=== PATIENT | female | born 1980 | race American Indian/Alaskan Native ===

== ENCOUNTER 2018-12-14 10:24 | Emergency (ER) | payer MEDICAID ==
[2018-12-14 10:31] VITALS: BP 131/81
--- NOTE | 2018-12-14 11:21 | Emergency Department Report ---
ED ENT HPI - General Chief complaint: Dental/Oral Stated complaint: TOOTH ACHE Time Seen by Provider: 12/14/18 11:13 Source: patient Mode of arrival: Ambulatory Limitations: No Limitations - History of Present Illness Initial comments: 38-year-old female presents with complaint of left sided toothache 2 days. Patient reports that she is aware that she has a bad tooth for a while. Patient reports she has not taken anything for pain but only doing warm salt rinse. Patient reports that her Medicaid is not covered by her dentist. MD complaint: tooth pain Onset/Timin -: days(s) Location: tooth # (19) Severity scale (0 -10): 10 Quality: aching Consistency: constant Improves with: none, other (has not taken anything for pain.) Worsens with: none Context- Dental: history of dental caries, poor dental care - Related Data Previous Rx's Medication Instructions Recorded Last Taken Type HYDROcodone/APAP 5-325 [[place] 1 each PO Q6H PRN #30 tablet 04/29/15 Unknown Rx 5-325 mg TAB] Ibuprofen [Motrin 600 MG tab] 600 mg PO Q6H PRN #30 tablet 04/29/15 Unknown Rx HYDROcodone/APAP 5-325 [[place] 1 each PO Q6HR PRN #30 tablet 02/25/16 Unknown Rx 5/325] Ibuprofen [Motrin 600 MG tab] 600 mg PO Q6H PRN #30 tablet 02/25/16 Unknown Rx Vit-Fe Fumar-FA [ 1 tab PO QDAY #30 tablet 02/25/16 Unknown Rx Vitamin] Clindamycin [Clindamycin CAP] 300 mg PO Q8H #30 cap 12/14/18 Unknown Rx Ibuprofen [Motrin 800 MG tab] 800 mg PO Q8HR PRN #30 tablet 12/14/18 Unknown Rx Allergies Allergy/AdvReac Type Severity Reaction Status Date / Time sulfamethoxazole Allergy Itching Verified 04/28/15 01:12 [From Bactrim] trimethoprim [From Bactrim] Allergy Itching Verified 04/28/15 01:12 ED Dental HPI - General Chief complaint: Dental/Oral Stated complaint: TOOTH ACHE Time Seen by Provider: 12/14/18 11:13 Source: patient Mode of arrival: Ambulatory Limitations: No Limitations - Related Data Previous Rx's Medication Instructions Recorded Last Taken Type HYDROcodone/APAP 5-325 [[place] 1 each PO Q6H PRN #30 tablet 04/29/15 Unknown Rx 5-325 mg TAB] Ibuprofen [Motrin 600 MG tab] 600 mg PO Q6H PRN #30 tablet 04/29/15 Unknown Rx HYDROcodone/APAP 5-325 [[place] 1 each PO Q6HR PRN #30 tablet 02/25/16 Unknown Rx 5/325] Ibuprofen [Motrin 600 MG tab] 600 mg PO Q6H PRN #30 tablet 02/25/16 Unknown Rx Vit-Fe Fumar-FA [ 1 tab PO QDAY #30 tablet 02/25/16 Unknown Rx Vitamin] Clindamycin [Clindamycin CAP] 300 mg PO Q8H #30 cap 12/14/18 Unknown Rx Ibuprofen [Motrin 800 MG tab] 800 mg PO Q8HR PRN #30 tablet 12/14/18 Unknown Rx Allergies Allergy/AdvReac Type Severity Reaction Status Date / Time sulfamethoxazole Allergy Itching Verified 04/28/15 01:12 [From Bactrim] trimethoprim [From Bactrim] Allergy Itching Verified 04/28/15 01:12 ED Review of Systems ROS: Stated complaint: TOOTH ACHE Other details as noted in HPI ED Past Medical Hx - Past Medical History Previous Medical History?: No Hx Hypertension: No Hx Congestive Heart Failure: No Hx Diabetes: No Hx Deep Vein Thrombosis: No Hx Renal Disease: No Hx Sickle Cell Disease: No Hx Seizures: No Hx Asthma: No Hx COPD: No Hx HIV: No - Surgical History Past Surgical History?: No - Social History Smoking Status: Never Smoker Substance Use Type: Alcohol - Medications Home Medications: Home Medications Medication Instructions Recorded Confirmed Last Taken Type HYDROcodone/APAP 5-325 [[place] 1 each PO Q6H PRN #30 tablet 04/29/15 02/24/16 Unknown Rx 5-325 mg TAB] Ibuprofen [Motrin 600 MG tab] 600 mg PO Q6H PRN #30 tablet 04/29/15 02/24/16 Unknown Rx HYDROcodone/APAP 5-325 [[place] 1 each PO Q6HR PRN #30 tablet 02/25/16 Unknown Rx 5/325] Ibuprofen [Motrin 600 MG tab] 600 mg PO Q6H PRN #30 tablet 02/25/16 Unknown Rx Vit-Fe Fumar-FA [ 1 tab PO QDAY #30 tablet 02/25/16 Unknown Rx Vitamin] Clindamycin [Clindamycin CAP] 300 mg PO Q8H #30 cap 12/14/18 Unknown Rx Ibuprofen [Motrin 800 MG tab] 800 mg PO Q8HR PRN #30 tablet 12/14/18 Unknown Rx ED Physical Exam - General Limitations: No Limitations General appearance: alert, in no apparent distress - Head Head exam: Present: atraumatic, normocephalic - Eye Eye exam: Present: normal appearance, EOMI - Expanded ENT Exam Expanded Teeth exam: Present: dental caries, fractured tooth # (19), dental tenderness # (19). Absent: gingival enlargement - Neurological Exam Neurological exam: Present: alert, oriented X3, normal gait - Psychiatric Psychiatric exam: Present: normal affect, normal mood - Skin Skin exam: Present: warm, dry, intact, normal color. Absent: rash ED Course Vital Signs 12/14/18 10:28 Temperature 98.5 F Pulse Rate 78 Respiratory 18 Rate Blood Pressure 131/81 O2 Sat by Pulse 98 Oximetry ED Medical Decision Making - Medical Decision Making 38-year-old female presents with complaint of left sided toothache 2 days. Patient reports that she is aware that she has a bad tooth for a while. Patient reports she has not taken anything for pain but only doing warm salt rinse. Patient reports that her Medicaid is not covered by her dentist. Ibuprofen 800 mg now. Patient was discharged home with ibuprofen 800 mg every 8 hours when necessary and clindamycin 300 mg twice a day and referred to a dentist. Critical care attestation.: If time is entered above; I have spent that time in minutes in the direct care of this critically ill patient, excluding procedure time. ED Disposition Clinical Impression: Chronic dental pain, Dental caries into pulp Disposition: DC-01 TO HOME OR SELFCARE Is pt being admited?: No Does the pt Need Aspirin: No Condition: Stable Instructions: Dental Caries (ED) Additional Instructions: Complete antibiotics as prescribed and take pain medication as needed and follow up with a dentist. Prescriptions: Clindamycin [Clindamycin CAP] 300 mg PO Q8H #30 cap Ibuprofen [Motrin 800 MG tab] 800 mg PO Q8HR PRN #30 tablet PRN Reason: Pain , Severe (7-10) Referrals: TOMÁS SOLORZANO MD [Primary Care Provider] - 3-5 Days [facility] [Outside] - 3-5 Days [facility] [Outside] - 3-5 Days [facility] [Outside] - 3-5 Days Forms: Work/School Release Form(ED)
[2018-12-14] MEDS ORDERED: IBUPROFEN PO ONE (11:22)
== END 2018-12-14 11:47 | disposition home or self-care (01) ==
LOC: ED 10:24
DX: G89.29 Other chronic pain (principal); K08.89 Other specified disorders of teeth and supporting structures; K02.9 Dental caries, unspecified; Z79.899 Other long term (current) drug therapy; Z88.1 Allergy status to other antibiotic agents; Z88.2 Allergy status to sulfonamides
CPT/HCPCS: 99282

== ENCOUNTER 2019-07-11 23:04 | Outpatient (CLI) | payer MEDICAID ==
[2019-07-11 23:17] VITALS: BP 132/65
--- NOTE | 2019-07-12 01:09 | Ultrasound Report ---
ULTRASOUND OBSTETRIC LIMITED INDICATION / CLINICAL INFORMATION: Decreased movement. TECHNIQUE: Transabdominal ultrasound imaging. COMPARISON: None available. FINDINGS: HEART RATE (beats per minute): 149 AMNIOTIC FLUID INDEX (cm) = not measured PRESENTATION: Transverse. ADDITIONAL FINDINGS: None. IMPRESSION: Viable IUP in a transverse presentation. Signer Name: Emeyl Jerry MD Signed: 07/12/2019 1:04 AM Workstation Name: [id number]
== END 2019-07-12 00:35 | disposition home or self-care (01) ==
LOC: TRG 23:04
PROVIDERS: ATTEND Obstetrics & Gynecology
DX: O36.8120 Decreased fetal movements, second trimester, not applicable or unspecified (principal); Z3A.23 23 weeks gestation of pregnancy
CPT/HCPCS: 76815

== ENCOUNTER 2019-10-15 12:30 | Outpatient (CLI) | payer MEDICAID ==
[2019-10-15] MEDS ORDERED: LACTATED RINGERS 500 ML IV ONE (14:52)
[2019-10-15 16:05] LABS: Bacteria,Urine 1+ /HPF (Negative); Bilirubin,Urine NEG (Negative); Blood,Urine NEG (Negative); Calcium Oxalate Crystals,Urine 2+; Color,Urine Amber (Yellow); Mucus,Urine 2+ /HPF; Protein,Urine <15 mg/dL mg/dL (Negative)
[2019-10-15 16:18] VITALS: BP 108/56
[2019-10-15] MEDS ORDERED: BICITRA ORAL LIQD 30ML PO ONE (16:41)
[2019-10-15] MEDS ORDERED: BICITRA ORAL LIQD 30ML ONE (16:45)
== END 2019-10-15 16:56 | disposition home or self-care (01) ==
LOC: TRG 12:30 → APU 14:18 → TRG 16:56
PROVIDERS: ATTEND Obstetrics & Gynecology
DX: O26.893 Other specified pregnancy related conditions, third trimester (principal); M54.5 Low back pain; Z3A.37 37 weeks gestation of pregnancy
CPT/HCPCS: 59025; 81001; 87086

== ENCOUNTER 2019-10-28 06:45 | Inpatient (IN) | payer MEDICAID ==
[2019-10-28] MEDS ORDERED: ONDANSETRON 4 MG/2 ML INJ IV PRN ×2 (10:03→20:53)
[2019-10-28] MEDS ORDERED: fentaNYL 100 MCG/2 ML INJ IV PRN (10:03)
[2019-10-28] MEDS ORDERED: BUTORPHANOL 2 MG/1 ML INJ IV PRN ×2 (10:03)
[2019-10-28] MEDS ORDERED: PROMETHAZINE 25 MG TAB PO PRN ×2 (10:03→20:53)
[2019-10-28] MEDS ORDERED: TERBUTALINE 1 MG/1 ML INJ SUB-Q PRN (10:03)
[2019-10-28] MEDS ORDERED: TERBUTALINE 1 MG/1 ML INJ IVP PRN (10:03)
[2019-10-28] MEDS ORDERED: NALOXONE 0.4 MG/1 ML INJ IV PRN (10:03)
[2019-10-28] MEDS ORDERED: ePHEDrine SULFATE 50 MG/1 ML INJ IV PRN ×2 (10:03→17:53)
[2019-10-28 10:40] LABS: Hematocrit 39.6 % (30.3-42.9); Mean Corpuscular HGB Conc 35 % (30-34); Mean Corpuscular Volume 90 fl (79-97); Platelet Count 210 K/mm3 (140-440)
[2019-10-28] MEDS ORDERED: LIDOCAINE (2%) 20 MG/1 ML VIAL 20 ML MDV INFILTRATI ONE (11:00)
[2019-10-28] MEDS ORDERED: OXYTOCIN DRIP 30 UNITS/500 ML BAG IV SCH (11:00)
[2019-10-28 11:08] LABS: Alanine Aminotransferase 14 units/L (7-56); BUN/Creatinine Ratio 20; Blood Urea Nitrogen 10 mg/dL (7-17); Hemolysis Index 19; Uric Acid 6.7 mg/dL (3.5-7.6)
[2019-10-28] MEDS: OXYTOCIN DRIP 30 UNITS/500 ML BAG IV SCH ×2 (11:55→15:11)
[2019-10-28] MEDS: LACTATED RINGERS 1,000 ML IV SCH ×3 (11:56→16:08)
--- NOTE | 2019-10-28 13:09 | History and Physical Report ---
History of Present Illness Date of examination: 10/28/19 Date of admission: 10/28/19 11:33 Chief complaint: Contractions History of present illness: Pt is a 39 yo at 38w6d EGA who presents reporting regular uterine contractions since 0200 today. In triage, her blood pressure was noted to be normal with occasional mild range BP. She reports positive movement and denies LOF, vaginal bleeding, VENEGAS, scotomata, or RUQ pain. She has received care with [facility], co-managed with [facility]. Her has been complicated by advanced maternal age, Trichomonas with negative test of cure, obesity, and lump on left side of neck with normal ultrasound. 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 Past History Past Medical History: no pertinent history Past Surgical History: cholecystectomy [employer] History: herpes, trichomonas Family/Genetic History: diabetes, hypertension Social history: no significant social history - Obstetrical History Expected Date of Delivery: 11/05/19 Actual Gestation: 38 Week(s) 6 Day(s) : 6 Para: 5 Hx # Term Pregnancies: 4 Number of Pregnancies: 1 (IUFD at 34 weeks) Spontaneous Abortions: 0 Induced : 0 Number of Living Children: 4 Medications and Allergies Allergies Allergy/AdvReac Type Severity Reaction Status Date / Time sulfamethoxazole Allergy Itching Verified 04/28/15 01:12 [From Bactrim] trimethoprim [From Bactrim] Allergy Itching Verified 04/28/15 01:12 Home Medications Medication Instructions Recorded Confirmed Last Taken Type Vit-Fe Fumar-FA [ 1 tab PO QDAY #30 tablet 02/25/16 10/27/19 20:00 Rx Vitamin] Active Meds: Active Medications Butorphanol Tartrate (Stadol) 1 mg IV Q2H PRN PRN Reason: Pain, Moderate(4-6) LABOR PAIN Butorphanol Tartrate (Stadol) 2 mg IV Q2H PRN PRN Reason: Pain , Severe (7-10) Ephedrine Sulfate (Ephedrine Sulfate) 10 mg IV Q2M PRN PRN Reason: Hypotension Fentanyl (Sublimaze) 100 mcg IV Q2H PRN PRN Reason: Pain,Severe (7-10) LABOR PAIN Oxytocin/Sodium Chloride (Pitocin/Ns 20 Unit/1000ml Drip) 20 units in 1,000 mls @ 125 mls/hr IV DIRECT ANNEL Oxytocin/Sodium Chloride (Pitocin/Ns 30 Unit/500ml) 30 units in 500 mls @ 1 mls/hr IV TITR ANNEL; Protocol Oxytocin/Sodium Chloride (Pitocin/Ns 30 Unit/500ml) 30 units in 500 mls @ 2 mls/hr IV TITR ANNEL; Protocol Last Titration: 10/28/19 12:50 Dose: 4 ml/hr, 4 mls/hr Documented by: Lactated Ringer's (Lactated Ringers) 1,000 mls @ 125 mls/hr IV DIRECT ANNEL Last Admin: 10/28/19 11:56 Dose: 125 mls/hr Documented by: Mineral Oil (Mineral Oil) 30 ml PO QHS PRN PRN Reason: Constipation Naloxone HCl (Naloxone) 0.1 mg IV Q2MIN PRN PRN Reason: Res Rate </= 8 or 02 SAT < 92% Ondansetron HCl (Zofran) 4 mg IV Q8H PRN PRN Reason: Nausea And Vomiting Promethazine HCl (Phenergan) 25 mg PO Q6H PRN PRN Reason: Nausea And Vomiting Terbutaline Sulfate (Brethine) 0.25 mg SUB-Q ONCE PRN PRN Reason: Hyperstimulation/Hypertonicity Stop: 10/28/19 23:59 Terbutaline Sulfate (Brethine) 0.25 mg IVP ONCE PRN PRN Reason: Hyperstimulation/Hypertonicity Stop: 10/28/19 23:59 Review of Systems All systems: negative Genitourinary: contractions, no vaginal bleeding, no vaginal discharge, no leakage of fluid, no genital sores - Vital Signs Vital signs: Vital Signs Pulse BP 93 H 135/77 10/28/19 07:13 10/28/19 07:13 Temp Pulse Resp BP Pulse Ox 98.1 F 83 18 124/78 99 10/28/19 11:33 10/28/19 12:58 10/28/19 08:06 10/28/19 12:37 10/28/19 12:58 - Physical Exam Lungs: Positive: Normal air movement Abdomen: Positive: soft Uterus: Positive: enlarged (gravid) - Obstetrical FHR: category 1 Uterine Contraction Monitor Mode: External Cervical Dilatation: 3 (per RN) Cervical Effacement Percentage: 50 station: -3 Uterine Contraction Pattern: Regular Results Result Diagrams: 10/28/19 10:36 10/28/19 10:28 Abnormal lab results 10/28/19 10/28/19 Range/Units 10:28 10:36 MCHC 35 H (30-34) % RDW 16.0 H (13.2-15.2) % Sodium 136 L (137-145) mmol/L Creatinine 0.5 L (0.7-1.2) mg/dL Alkaline Phosphatase 154 H (35-129) units/L Lactate Dehydrogenase 237 H (91-180) units/L All other labs normal. 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
[2019-10-28] MEDS ORDERED: DEXMEDETOMIDINE 200 MCG/2 ML VIAL IV ONE (17:18)
[2019-10-28] MEDS ORDERED: NALOXONE 2 MG/2 ML INJ IV PRN (17:53)
--- NOTE | 2019-10-28 17:53 | Anesthesia Consultation ---
Anesthesia Consult and Med Hx Date of service: 10/28/19 - Airway Anesthetic Teeth Evaluation: Good ROM Head & Neck: Adequate Mental/Hyoid Distance: Adequate Mallampati Class: Class III Intubation Access Assessment: Probably Good - Pulmonary Exam CTA: Yes - Cardiac Exam Cardiac Exam: RRR - Pre-Operative Health Status ASA Pre-Surgery Classification: ASA3 Proposed Anesthetic Plan: Epidural - Pulmonary Hx Smoking: No Hx Asthma: No Hx Respiratory Symptoms: No SOB: No COPD: No Home Oxygen Therapy: No Hx Pneumonia: No Hx Sleep Apnea: No - Cardiovascular System Hx Hypertension: No Hx Coronary Artery Disease: No Hx Heart Attack/AMI: No Hx Angina: No Hx Percutaneous Transluminal Coronary Angioplasty (PTCA): No Hx Cardia Arrhythmia: No Hx Pacemaker: No Hx Internal Defibrillator: No Hx Valvular Heart Disease: No Hx Heart Murmur: No Hx Peripheral Vascular Disease: No - Central Nervous System Hx Neuromuscular Disorder: No Hx Seizures: No CVA: No Hx Back Pain: Yes Hx Psychiatric Problems: No - Gastrointestinal Hx Ulcer: No Hx Gastroesophageal Reflux Disease: Yes - Endocrine Hx Renal Disease: No Hx End Stage Renal Disease: No Hx Cirrhosis: No Hx Liver Disease: No Hx Insulin Dependent Diabetes: No Hx Non-Insulin Dependent Diabetes: No Hx Thyroid Disease: No Hx Hypothyroidism: No Hx Hyperthyroidism: No - Hematic Hx Anemia: No Hx Sickle Cell Disease: No - Other Systems Hx Alcohol Use: No Hx Cancer: No Hx Obesity: Yes (morbid)
--- NOTE | 2019-10-28 18:02 | Progress Note ---
Labor Epidural - Labor Epidural Start Time: 17:15 Stop Time: 17:31 Performed by:: JL AUGUSTIN Procedure: Continues Labor Epidural Patient is requesting a laboring epidural for laboring pain. Patient IDed, H&P reviewed, all questions and concerns were answered, and consent was signed. Timeout was performed at bedside. Patient in sitting position. Sterile prep and drape was performed. [3] ml of 1% lidocaine skin wheal at L[3]- L [4]. 18- gauge Touhy epidural needle was advanced to loss of resistance with air technique 7cm. Negative CSF negative blood. Epidural catheter advanced to [12 ] centimeters. [NEGATIVE] Aspiration [NEGATIVE] test dose. Sterile dressing applied. Patient tolerated procedure well.
[2019-10-28] MEDS: fentaNYL-BUPIV 2 MCG/ML-0.125% 200 MCG/100 ML BAG EPIDURAL SCH ×2 (18:35→18:37)
[2019-10-28] MEDS ORDERED: MINERAL OIL 30 ML ORAL LIQD ONE (19:50)
[2019-10-28] MEDS: OXYTOCIN 20 UNIT/1000ML DRIP 20 UNITS/1,000 ML BAG IV SCH ×2 (20:35→23:31)
--- NOTE | 2019-10-28 20:42 | Post Anesthesia Evaluation ---
- Post Anesthesia Evaluation Patient Participated: Yes Airway Patent: Yes Stable Respiratory Function: Yes Nausea/Vomiting: No Temp > 96.8F: Yes Pain Manageable: Yes Adequeate Hydration: Yes Anesthesia Complications: No Block Receding Appropriately: Yes Patient on Ventilator: No
[2019-10-28] MEDS ORDERED: miSOPROStol 200 MCG TAB ONE (20:43)
[2019-10-28] MEDS ORDERED: diphenhydrAMINE 25 MG CAP PO PRN (20:53)
[2019-10-28] MEDS ORDERED: WITCH HAZEL/ GLYCERIN PAD TP PRN (20:53)
[2019-10-28] MEDS ORDERED: MAGNESIUM HYDROXIDE (MOM) ORAL LIQD UDC PO PRN (20:53)
[2019-10-28] MEDS ORDERED: LANOLIN/ZINC/DIMETHICONE (LANSINOH) 7 GM TP PRN (20:53)
[2019-10-28] MEDS ORDERED: PROMETHAZINE 25 MG RECT SUPP PR PRN (20:53)
[2019-10-28] MEDS ORDERED: ACETAMINOPHEN 325 MG TAB PO PRN (20:53)
--- NOTE | 2019-10-28 21:00 | Procedure Note ---
OB Delivery Note - Delivery Date of Delivery: 10/28/19 Surgeon: JUAREZ LO ([facility]) Estimated blood loss: 200cc - Vaginal Delivery presentation: vertex Delivery position: OA Delivery induction: none Delivery augmentation: pitocin Delivery monitor: external FHT, external uterine Route of delivery: Delivery placenta: spontaneous Delivery cord: 3 umbilical vessels, other (body cord) Episiotomy: none Delivery laceration: none Anesthesia: epidural Delivery comments: Pt noted to be c/c/o and commenced pushing. Excellent maternal effort progressed to of vigorous male infant at 2030. Head delivered OA, restituted LOT, shoulders followed easily. Infant to maternal abdomen. Apgars 8/9. Cord clamped and cut 8 minutes after . Placenta delivered spontaneously and intact at 2039. Fundus firm, Pitocin infusing. No la cerations noted. EBL 200cc. Prophylactic Cytotec 800mcg administered DE. Weight 6lb 0.5oz. Mother and infant bonding, plan to breast feed. - Infant A at 1 minute: 8 at 5 minutes: 9 Gender: Male
[2019-10-28] MEDS ORDERED: miSOPROStol 200 MCG TAB PR ONE (21:18)
[2019-10-28] MEDS ORDERED: MINERAL OIL 30 ML ORAL LIQD PO PRN (22:00)
[2019-10-28] MEDS: IBUPROFEN 600 MG TAB PO SCH (23:29)
[2019-10-29] MEDS: IBUPROFEN 600 MG TAB PO SCH ×3 (04:51→20:06)
[2019-10-29 08:13] LABS: Hematocrit 36.2 % (30.3-42.9); Hemoglobin 12.4 gm/dl (10.1-14.3)
--- NOTE | 2019-10-29 09:01 | Progress Note ---
Assessment and Plan - Patient Problems (1) Vaginal delivery Current Visit: Yes Status: Acute Plan to address problem: Patient doing well discharge home tomorrow Subjective - Subjective Date of service: 10/29/19 Interval history: Patient without any significant complaints. She reports that her lochia is decreasing her pain is well controlled. Patient reports: appetite normal, voiding normally, pain well controlled : doing well Objective - Vital Signs Latest vital signs: Vital Signs Temp Pulse Resp BP BP Pulse Ox 10/29/19 08:25 98 F 81 18 123/81 95 10/29/19 04:00 98.8 F 74 18 118/74 10/29/19 00:00 98.6 F 69 16 118/69 10/28/19 22:45 97.7 F 82 16 125/52 10/28/19 22:01 90 112/64 10/28/19 21:40 85 119/74 10/28/19 21:20 86 116/73 10/28/19 21:00 90 124/73 10/28/19 20:45 97.4 F L 16 10/28/19 20:40 85 113/60 10/28/19 20:27 121 H 100 10/28/19 20:22 103 H 105/55 100 10/28/19 20:17 95 H 100 10/28/19 20:12 84 100 10/28/19 20:07 111 H 100 10/28/19 20:02 109 H 100 10/28/19 20:00 96 H 103/61 10/28/19 19:57 90 100 10/28/19 19:52 112 H 100 10/28/19 19:47 94 H 100 10/28/19 19:42 92 H 100 10/28/19 19:40 96 H 95/54 10/28/19 19:37 79 100 10/28/19 19:32 90 100 10/28/19 19:27 84 100 10/28/19 19:22 74 100 10/28/19 19:20 89 102/58 10/28/19 19:17 91 H 100 10/28/19 19:12 92 H 100 10/28/19 19:10 97.7 F 16 10/28/19 19:07 87 100 10/28/19 19:06 97 H 104/58 10/28/19 19:04 103 H 94 10/28/19 19:02 91 H 100 20 18:57 93 H 100 20 18:52 98 H 100 20 18:47 98 H 100 20 18:42 81 100 20 18:41 90 111/71 20 18:37 84 100 20 18:32 90 100 20 18:27 78 100 20 18:22 85 100 20 18:20 88 116/68 20 18:17 87 100 20 18:12 96 H 100 10/28/19 18:07 89 98 10/28/19 18:02 97 H 98 10/28/19 18:00 99 H 105/55 10/28/19 17:57 109 H 98 10/28/19 17:52 102 H 100 10/28/19 17:47 94 H 99 10/28/19 17:42 111 H 99 10/28/19 17:39 93 H 131/77 10/28/19 17:38 93 H 127/71 10/28/19 17:37 91 H 100 10/28/19 17:36 103 H 136/64 10/28/19 17:33 83 135/73 10/28/19 17:32 88 133/80 99 10/28/19 17:27 104 H 99 10/28/19 17:26 93 H 90 10/28/19 17:22 92 H 99 10/28/19 17:17 99 H 97 10/28/19 17:12 80 99 10/28/19 17:08 86 119/64 10/28/19 17:07 87 98 10/28/19 17:02 88 99 10/28/19 16:57 78 100 20 16:52 92 H 99 20 16:47 80 99 20 16:42 78 99 20 16:37 79 98 20 16:36 85 116/57 20 16:32 85 100 20 16:27 93 H 95 10/28/19 16:22 90 99 10/28/19 16:17 92 H 98 10/28/19 16:12 85 100 10/28/19 16:07 76 100 10/28/19 16:02 73 100 10/28/19 15:57 80 98 10/28/19 15:50 63 54 L 10/28/19 15:48 81 100 10/28/19 15:43 75 100 10/28/19 15:38 81 100 10/28/19 15:37 83 127/61 10/28/19 15:33 90 100 10/28/19 15:32 62 88 10/28/19 15:28 77 100 10/28/19 15:23 90 100 10/28/19 15:20 94 10/28/19 15:18 81 100 10/28/19 15:13 86 100 10/28/19 15:08 81 100 10/28/19 15:07 89 120/64 10/28/19 15:03 89 100 10/28/19 14:58 83 100 10/28/19 14:53 79 99 10/28/19 14:48 81 98 10/28/19 14:43 86 99 10/28/19 14:38 88 99 10/28/19 14:36 93 H 109/60 10/28/19 14:33 89 98 10/28/19 14:28 99 H 98 10/28/19 14:23 85 98 10/28/19 14:18 91 H 97 10/28/19 14:13 82 98 10/28/19 14:08 83 97 10/28/19 14:06 95 H 112/65 10/28/19 14:03 83 98 10/28/19 13:58 92 H 97 10/28/19 13:53 82 98 10/28/19 13:48 81 99 10/28/19 13:47 98.1 F 10/28/19 13:43 84 99 10/28/19 13:38 86 100 10/28/19 13:36 92 H 130/63 10/28/19 13:33 89 98 10/28/19 13:28 90 97 10/28/19 13:23 88 99 10/28/19 13:18 91 H 95 10/28/19 13:13 84 96 10/28/19 13:08 86 97 10/28/19 13:06 86 116/74 10/28/19 13:03 90 95 10/28/19 12:58 83 99 10/28/19 12:53 91 H 95 10/28/19 12:48 89 96 10/28/19 12:44 85 93 10/28/19 12:43 96 H 95 10/28/19 12:38 107 H 96 10/28/19 12:37 85 124/78 90 10/28/19 12:33 87 97 10/28/19 12:28 88 96 10/28/19 12:23 91 H 98 10/28/19 12:18 91 H 96 10/28/19 12:13 101 H 97 10/28/19 12:08 87 98 10/28/19 12:07 100 H 113/67 10/28/19 11:35 101 H 110/70 10/28/19 11:33 98.1 F 10/28/19 10:42 83 96 10/28/19 10:37 83 98 10/28/19 10:32 87 99 10/28/19 10:10 101 H 92 10/28/19 10:05 94 H 97 10/28/19 10:03 91 H 94 10/28/19 10:00 87 100 10/28/19 09:55 93 H 106/56 98 Intake and Output 10/28/19 10/29/19 10/29/19 22:59 06:59 14:59 Intake Total 2583.800 366.667 240 Output Total 950 Balance 2583.800 -583.333 240 Intake: IV 2583.800 366.667 Lactated Ringers 1,000 ml 2525.000 @ 125 mls/hr IV DIRECT ANNEL Rx#:[id number] PITOCin/NS 20 UNIT/1000ML 366.667 DRIP 20 units In 1,000 ml @ 125 mls/hr IV DIRECT ANNEL Rx#:[id number] PITOCin/NS 30 UNIT/500ML 58.800 30 units In 500 ml @ 2 mls/hr IV TITR ANNEL Rx#: [id number] Oral 240 Output: Urine 950 Void 950 Other: Total, Intake Amount 240 Total, Output Amount 450 # Voids Void 1 1 Estimated Blood Loss 200 - Exam Uterus: Present: normal, firm - Labs Labs: Abnormal lab results 10/28/19 10/28/19 Range/Units 10:28 10:36 MCHC 35 H (30-34) % RDW 16.0 H (13.2-15.2) % Sodium 136 L (137-145) mmol/L Creatinine 0.5 L (0.7-1.2) mg/dL Alkaline Phosphatase 154 H (35-129) units/L Lactate Dehydrogenase 237 H (91-180) units/L
--- NOTE | 2019-10-29 09:04 | Discharge Summary ---
Providers - Providers Date of Admission: 10/28/19 11:33 Date of discharge: 10/30/19 Attending physician: THEO MOSCOSO Primary care physician: THEO MOSCOSO Hospitalization Reason for admission: active labor Delivery: Discharge diagnosis: IUP at term delivered Hospital course: Patient was admitted in active labor and had a successful vaginal delivery. Her course was uneventful. Condition at discharge: Good Disposition: DC- TO HOME OR SELFCARE - Discharge Diagnoses (1) Vaginal delivery Status: Acute Plan - Discharge Medications Prescriptions: Ibuprofen [Motrin] 600 mg PO Q6H PRN #60 tablet PRN Reason: Pain Ibuprofen [Motrin] 800 mg PO Q8HR PRN #60 tablet PRN Reason: Pain , Severe (7-10) HYDROcodone/APAP 5-325 [[place] 5/325] 1 each PO Q6HR PRN #15 tablet PRN Reason: Pain - Provider Discharge Summary Activity: no sex for 6 weeks, no heavy lifting 4 weeks, no strenuous exercise Diet: routine Instructions: routine Additional instructions: [] Smoking cessation referral if applicable(refer to patient education folder for contact #) [] Refer to [facility] Booklet Call your doctor immediately for: * Fever > 100.5 * Heavy vaginal bleeding ( >1 pad per hour) * Severe persistent headache * Shortness of breath * Reddened, hot, painful area to leg or breast * visit in 4 weeks - Follow up plan
[2019-10-30] MEDS: IBUPROFEN 600 MG TAB PO SCH (07:16)
[2019-10-30 12:57] VITALS: BP 131/71
== END 2019-10-30 12:40 | disposition home or self-care (01) | DRG 774 ==
LOC: TRG 06:45 → APU 06:51 → TRG 11:32 → LD 11:33 → OB 23:20
PROVIDERS: ADMIT Obstetrics & Gynecology; ATTEND Obstetrics & Gynecology
PROC: 10E0XZZ Delivery of Products of Conception, External Approach (ICD-10-PCS; principal; 2019-10-28)
PROC: 3E0R3BZ Introduction of Anesthetic Agent into Spinal Canal, Percutaneous Approach (ICD-10-PCS; 2019-10-28)
PROC: 00HU33Z Insertion of Infusion Device into Spinal Canal, Percutaneous Approach (ICD-10-PCS; 2019-10-28)
PROC: 10907ZC Drainage of Amniotic Fluid, Therapeutic from Products of Conception, Via Natural or Artificial Opening (ICD-10-PCS; 2019-10-28)
DX: O99.62 Diseases of the digestive system complicating childbirth (principal); O98.52 Other viral diseases complicating childbirth; O69.89X0 Labor and delivery complicated by other cord complications, not applicable or unspecified; K21.9 Gastro-esophageal reflux disease without esophagitis; O99.214 Obesity complicating childbirth; E66.01 Morbid (severe) obesity due to excess calories; B00.9 Herpesviral infection, unspecified; Z3A.38 38 weeks gestation of pregnancy; Z37.0 Single live birth; Z90.49 Acquired absence of other specified parts of digestive tract; Z82.49 Family history of ischemic heart disease and other diseases of the circulatory system; Z83.3 Family history of diabetes mellitus; Z88.2 Allergy status to sulfonamides
CPT/HCPCS: 36415; 80053; 83615; 84550; 85014; 85018; 85027; 86850; 86900; 86901; G0378; J2590; J3490; J7120

== ENCOUNTER 2021-02-20 14:37 | Inpatient (IN) | payer MEDICAID ==
--- NOTE | 2021-02-20 16:47 | History and Physical Report ---
History of Present Illness Date of examination: 02/20/21 Date of admission: 02/20/21 14:37 Chief complaint: Induction of labor History of present illness: 40-year-old -1-0-5 at 37 and 2 weeks who presents for induction of labor secondary to oligohydramnios and a history of intrauterine . The patient initiated her care in the first trimester of her . Her course is complicated by advanced maternal age, grand multiparity, history of intrauterine demise, morbid obesity, and currently oligohydramnios. The patient is GBS negative Past History Past Medical History: no pertinent history Past Surgical History: cholecystectomy Social history: - Obstetrical History Expected Date of Delivery: 03/11/21 Actual Gestation: 37 Week(s) 2 Day(s) : 7 Para: 5 Hx # Term Pregnancies: 5 Number of Pregnancies: 1 Spontaneous Abortions: 0 Induced : 0 Number of Living Children: 5 Medications and Allergies Allergies Allergy/AdvReac Type Severity Reaction Status Date / Time sulfamethoxazole Allergy Itching Verified 04/28/15 01:12 [From Bactrim] trimethoprim [From Bactrim] Allergy Itching Verified 04/28/15 01:12 Home Medications Medication Instructions Recorded Confirmed Last Taken Type Vit-Fe Fumar-FA [ 1 tab PO QDAY #30 tablet 02/25/16 10/27/19 20:00 Rx Vitamin] Ibuprofen [Motrin] 600 mg PO Q6H PRN #60 tablet 10/28/19 Unknown Rx HYDROcodone/APAP 5-325 [[place] 1 each PO Q6HR PRN #15 tablet 10/29/19 Unknown Rx 5/325] Ibuprofen [Motrin] 800 mg PO Q8HR PRN #60 tablet 10/29/19 Unknown Rx Review of Systems All systems: negative - Vital Signs Vital signs: Vital Signs Pulse Ox 80 L 02/20/21 15:46 Temp Pulse Resp BP Pulse Ox 73 97 02/20/21 16:36 02/20/21 16:36 - Physical Exam Breasts: Positive: deferred Cardiovascular: Regular rate Lungs: Positive: Clear to auscultation Abdomen: Positive: normal appearance Results All other labs normal. Assessment and Plan - Patient Problems (1) Oligohydramnios Current Visit: Yes Status: Acute Plan to address problem: Admit for induction of labor (2) Morbid obesity Current Visit: No Status: Acute
[2021-02-20] MEDS ORDERED: CARBOPROST TROMETHAMINE 250 MCG/1 ML INJ IM PRN (17:55)
[2021-02-20] MEDS ORDERED: LOPERAMIDE 2 MG CAP PO PRN (17:55)
[2021-02-20] MEDS ORDERED: fentaNYL 100 MCG/2 ML INJ IV PRN (17:55)
[2021-02-20] MEDS ORDERED: miSOPROStol 200 MCG TAB PR PRN (17:55)
[2021-02-20] MEDS ORDERED: OXYTOCIN 10 UNIT/1 ML INJ IM PRN (17:55)
[2021-02-20] MEDS ORDERED: BUTORPHANOL 2 MG/1 ML INJ IV PRN (17:55)
[2021-02-20] MEDS ORDERED: METHYLERGONOVINE MALEATE 0.2 MG/ML VIAL IM PRN (17:55)
[2021-02-20] MEDS ORDERED: LIDOCAINE (2%) 20 MG/1 ML VIAL 20 ML MDV INFILTRATI ONE (17:55)
[2021-02-20] MEDS ORDERED: ACETAMINOPHEN 325 MG TAB PO PRN (17:55)
[2021-02-20] MEDS ORDERED: TERBUTALINE 1 MG/1 ML INJ SUB-Q PRN (17:55)
[2021-02-20] MEDS ORDERED: MINERAL OIL 30 ML ORAL LIQD PO PRN (17:55)
[2021-02-20] MEDS ORDERED: OXYTOCIN DRIP 30 UNITS/500 ML BAG IV SCH ×2 (18:00)
[2021-02-20] MEDS: LACTATED RINGERS 1,000 ML IV SCH (19:30)
[2021-02-20 19:31] LABS: Hematocrit 37.4 % (30.3-42.9); Hemoglobin 12.8 gm/dl (10.1-14.3); Mean Corpuscular HGB Conc 34 % (30-34); Mean Corpuscular Volume 87 fl (79-97); Platelet Count 198 K/mm3 (140-440); Red Blood Count 4.32 M/mm3 (3.65-5.03)
[2021-02-21] MEDS ORDERED: ePHEDrine SULFATE 50 MG/1 ML INJ IV PRN (01:01)
[2021-02-21] MEDS ORDERED: NALOXONE 2 MG/2 ML INJ IV PRN (01:01)
--- NOTE | 2021-02-21 01:01 | Anesthesia Consultation ---
Anesthesia Consult and Med Hx Date of service: 02/21/21 - Airway Anesthetic Teeth Evaluation: Good ROM Head & Neck: Adequate Mental/Hyoid Distance: Adequate Mallampati Class: Class II Intubation Access Assessment: Probably Good - Pulmonary Exam CTA: Yes - Cardiac Exam Cardiac Exam: RRR - Pre-Operative Health Status ASA Pre-Surgery Classification: ASA3 Proposed Anesthetic Plan: Epidural - Pulmonary Hx Smoking: No Hx Asthma: No Hx Respiratory Symptoms: No SOB: No COPD: No Hx Pneumonia: No Hx Sleep Apnea: No - Cardiovascular System Hx Hypertension: No Hx Coronary Artery Disease: No Hx Heart Attack/AMI: No Hx Angina: No Hx Percutaneous Transluminal Coronary Angioplasty (PTCA): No Hx Cardia Arrhythmia: No Hx Pacemaker: No Hx Internal Defibrillator: No Hx Valvular Heart Disease: No Hx Heart Murmur: No Hx Peripheral Vascular Disease: No - Central Nervous System Hx Neuromuscular Disorder: No Hx Seizures: No CVA: No Hx Back Pain: Yes Hx Psychiatric Problems: No - Gastrointestinal Hx Ulcer: No Hx Gastroesophageal Reflux Disease: Yes - Endocrine Hx Renal Disease: No Hx End Stage Renal Disease: No Hx Cirrhosis: No Hx Liver Disease: No Hx Insulin Dependent Diabetes: No Hx Non-Insulin Dependent Diabetes: Yes Hx Thyroid Disease: No Hx Hypothyroidism: No Hx Hyperthyroidism: No - Hematic Hx Anemia: No Hx Sickle Cell Disease: No - Other Systems Hx Alcohol Use: No Hx Cancer: No Hx Obesity: Yes
--- NOTE | 2021-02-21 01:21 | Progress Note ---
Labor Epidural - Labor Epidural Start Time: 01:12 Stop Time: :17 Performed by:: ARNIE NAM Procedure: Patient is requesting epidural for labor pain. H&P, and labs reviewed. Procedure explained, questions answered, consent obtained. Patient in sitting position with blood pressure cuff and pulse ox on and working. Timeout performed immediately before start of procedure. Sterile chlorahexadine 0.5% prep/drape. 3 mL 1% lidocaine skin wheal at L[3]-L[4]. 17-gauge tuohy epidural needle advanced to [id number] with saline at 9 cm. 25-gauge spinal needle advanced until clear, free-flowing CSF. Intrathecal dexmedetomidine [5] mcg administered and needle removed. Epidural catheter advanced to 15 cm, negative aspiration for blood and csf, negative test dose 3 ml 1.5% lidocaine with epinephrine. Sterile sponge and tegaderm applied, followed by tape reinforcement. Patient tolerated procedure well.
[2021-02-21] MEDS: ePHEDrine SULFATE 50 MG/1 ML INJ IV PRN ×3 (01:32→01:54)
[2021-02-21] MEDS ORDERED: fentaNYL-BUPIV 2 MCG/ML-0.125% 200 MCG/100 ML BAG EPIDURAL SCH (02:00)
[2021-02-21] MEDS ORDERED: ePHEDrine SULFATE 50 MG/1 ML INJ IM ONE (02:52)
[2021-02-21] MEDS: LACTATED RINGERS 1,000 ML IV SCH ×2 (03:53→09:50)
--- NOTE | 2021-02-21 07:36 | Progress Note ---
Assessment and Plan - Patient Problems (1) Oligohydramnios Current Visit: Yes Status: Acute Qualifiers: Fetus number: single or unspecified fetus Trimester: third trimester Qualified Code(s): O41.03X0 - Oligohydramnios, third trimester, not applicable or unspecified Plan to address problem: Resume Pitocin titration starting at 2 mu/min Continue epidural at half if comfortable Anticipate (2) Morbid obesity Current Visit: No Status: Acute Subjective - Subjective Date of service: 02/21/21 Principal diagnosis: IOL secondary to Oligohydramnios Interval history: 40-year-old -1-0-5 at 37 and 2 weeks who presents for induction of labor secondary to oligohydramnios and a history of intrauterine . The patient initiated her care in the first trimester of her . Her course is complicated by advanced maternal age, grand multiparity, history of intrauterine demise, morbid obesity, and currently oligohydramnios. The patient is GBS negative Patient reports: loss of fluid (clear fluids), movement normal, no new complaints, no vaginal bleeding, no contractions Objective - Vital Signs Vital Signs: Vital Signs - 12hr 02/20/21 02/20/21 02/20/21 19:39 19:42 19:44 Temperature Pulse Rate 78 70 72 Respiratory Rate Blood Pressure Blood Pressure [Right] O2 Sat by Pulse 98 90 97 Oximetry 02/20/21 02/20/21 02/20/21 19:49 19:54 19:59 Temperature Pulse Rate 73 75 63 Respiratory Rate Blood Pressure Blood Pressure [Right] O2 Sat by Pulse 96 97 98 Oximetry 02/20/21 02/20/21 02/20/21 20:03 20:04 20:09 Temperature Pulse Rate 74 71 71 Respiratory Rate Blood Pressure Blood Pressure [Right] O2 Sat by Pulse 94 97 97 Oximetry 02/20/21 02/20/21 02/20/21 20:14 20:16 20:19 Temperature Pulse Rate 71 74 84 Respiratory Rate Blood Pressure Blood Pressure [Right] O2 Sat by Pulse 96 92 98 Oximetry 02/20/21 02/20/21 02/20/21 20:24 20:26 20:29 Temperature Pulse Rate 70 72 72 Respiratory Rate Blood Pressure Blood Pressure [Right] O2 Sat by Pulse 95 93 96 Oximetry 02/20/21 02/20/21 02/20/21 20:32 20:34 20:37 Temperature Pulse Rate 71 72 71 Respiratory Rate Blood Pressure Blood Pressure [Right] O2 Sat by Pulse 93 96 94 Oximetry 02/20/21 02/20/21 02/20/21 20:39 20:42 20:44 Temperature Pulse Rate 72 76 70 Respiratory Rate Blood Pressure Blood Pressure [Right] O2 Sat by Pulse 94 94 95 Oximetry 02/20/21 02/20/21 02/20/21 20:49 20:52 20:54 Temperature Pulse Rate 73 72 73 Respiratory Rate Blood Pressure Blood Pressure [Right] O2 Sat by Pulse 94 93 96 Oximetry 02/20/21 02/20/21 02/20/21 20:58 20:59 21:00 Temperature 98.7 F Pulse Rate 68 74 Respiratory Rate Blood Pressure Blood Pressure [Right] O2 Sat by Pulse 93 96 Oximetry 02/20/21 02/20/21 02/20/21 21:04 21:09 21:10 Temperature Pulse Rate 76 72 74 Respiratory Rate Blood Pressure Blood Pressure [Right] O2 Sat by Pulse 94 95 94 Oximetry 02/20/21 02/20/21 02/20/21 21:14 21:15 21:19 Temperature Pulse Rate 76 75 71 Respiratory Rate Blood Pressure Blood Pressure [Right] O2 Sat by Pulse 96 94 96 Oximetry 02/20/21 02/20/21 02/20/21 21:20 21:24 21:26 Temperature Pulse Rate 72 70 76 Respiratory Rate Blood Pressure Blood Pressure [Right] O2 Sat by Pulse 94 93 94 Oximetry 02/20/21 02/20/21 02/20/21 21:29 21:34 21:39 Temperature Pulse Rate 71 67 71 Respiratory Rate Blood Pressure Blood Pressure [Right] O2 Sat by Pulse 95 95 95 Oximetry 02/20/21 02/20/21 02/20/21 21:44 21:49 21:52 Temperature Pulse Rate 71 84 73 Respiratory Rate Blood Pressure Blood Pressure [Right] O2 Sat by Pulse 96 97 94 Oximetry 02/20/21 02/20/21 02/20/21 21:54 22:23 22:25 Temperature Pulse Rate 73 76 67 Respiratory Rate Blood Pressure 119/70 Blood Pressure [Right] O2 Sat by Pulse 96 97 Oximetry 02/20/21 02/20/21 02/20/21 22:28 22:33 22:38 Temperature Pulse Rate 76 83 74 Respiratory Rate Blood Pressure Blood Pressure [Right] O2 Sat by Pulse 97 97 96 Oximetry 02/20/21 02/20/21 02/20/21 22:41 22:43 22:48 Temperature Pulse Rate 73 75 65 Respiratory Rate Blood Pressure Blood Pressure [Right] O2 Sat by Pulse 94 97 95 Oximetry 02/20/21 02/20/21 02/20/21 22:53 22:56 22:58 Temperature Pulse Rate 75 79 77 Respiratory Rate Blood Pressure Blood Pressure [Right] O2 Sat by Pulse 98 94 98 Oximetry 02/20/21 02/20/21 02/20/21 23:03 23:08 23:13 Temperature Pulse Rate 68 63 64 Respiratory Rate Blood Pressure Blood Pressure [Right] O2 Sat by Pulse 97 96 97 Oximetry 02/20/21 02/20/21 02/20/21 23:14 23:18 23:22 Temperature Pulse Rate 62 69 61 Respiratory Rate Blood Pressure Blood Pressure [Right] O2 Sat by Pulse 94 97 94 Oximetry 02/20/21 02/20/21 02/20/21 23:23 23:28 23:33 Temperature Pulse Rate 71 64 72 Respiratory Rate Blood Pressure Blood Pressure [Right] O2 Sat by Pulse 96 96 95 Oximetry 02/20/21 02/20/21 02/20/21 23:38 23:42 23:43 Temperature Pulse Rate 67 74 77 Respiratory Rate Blood Pressure Blood Pressure [Right] O2 Sat by Pulse 98 94 95 Oximetry 02/20/21 02/20/21 02/20/21 23:48 23:52 23:53 Temperature Pulse Rate 64 68 70 Respiratory Rate Blood Pressure Blood Pressure [Right] O2 Sat by Pulse 99 83 L 94 Oximetry 02/20/21 02/21/21 02/21/21 23:58 00:01 00:03 Temperature Pulse Rate 62 69 79 Respiratory Rate Blood Pressure Blood Pressure [Right] O2 Sat by Pulse 98 94 94 Oximetry 02/21/21 02/21/21 02/21/21 00:08 00:13 00:18 Temperature Pulse Rate 61 74 63 Respiratory Rate Blood Pressure Blood Pressure [Right] O2 Sat by Pulse 76 L 99 98 Oximetry 02/21/21 02/21/21 02/21/21 00:23 00:28 00:33 Temperature Pulse Rate 69 63 62 Respiratory Rate Blood Pressure Blood Pressure [Right] O2 Sat by Pulse 98 97 99 Oximetry 02/21/21 02/21/21 02/21/21 00:38 00:43 00:48 Temperature Pulse Rate 57 L 67 57 L Respiratory Rate Blood Pressure Blood Pressure [Right] O2 Sat by Pulse 97 97 99 Oximetry 02/21/21 02/21/21 02/21/21 00:53 00:58 01:00 Temperature Pulse Rate 61 60 79 Respiratory Rate Blood Pressure Blood Pressure [Right] O2 Sat by Pulse 99 99 77 L Oximetry 02/21/21 02/21/21 02/21/21 01:03 01:06 01:08 Temperature Pulse Rate 77 53 L 71 Respiratory Rate Blood Pressure Blood Pressure [Right] O2 Sat by Pulse 100 84 100 Oximetry 02/21/21 02/21/21 02/21/21 01:13 01:15 01:17 Temperature Pulse Rate 71 61 72 Respiratory Rate Blood Pressure 119/70 124/69 Blood Pressure [Right] O2 Sat by Pulse 100 Oximetry 02/21/21 02/21/21 02/21/21 01:18 01:19 01:21 Temperature Pulse Rate 77 81 81 Respiratory Rate Blood Pressure 99/57 86/49 Blood Pressure [Right] O2 Sat by Pulse 98 Oximetry 02/21/21 02/21/21 02/21/21 01:23 01:26 01:28 Temperature Pulse Rate 85 88 77 Respiratory Rate Blood Pressure 83/40 66/29 Blood Pressure [Right] O2 Sat by Pulse 97 99 Oximetry 02/21/21 02/21/21 02/21/21 01:31 01:33 01:35 Temperature Pulse Rate 80 80 55 L Respiratory Rate Blood Pressure 83/46 88/49 80/46 Blood Pressure [Right] O2 Sat by Pulse 100 68 L Oximetry 02/21/21 02/21/21 02/21/21 01:37 01:38 01:39 Temperature Pulse Rate 71 89 90 Respiratory Rate Blood Pressure 111/58 93/52 Blood Pressure [Right] O2 Sat by Pulse 96 Oximetry 02/21/21 02/21/21 02/21/21 01:41 01:43 01:45 Temperature Pulse Rate 81 90 86 Respiratory Rate Blood Pressure 98/50 85/48 88/52 Blood Pressure [Right] O2 Sat by Pulse 93 97 Oximetry 02/21/21 02/21/21 02/21/21 01:47 01:48 01:49 Temperature Pulse Rate 87 95 H 96 H Respiratory Rate Blood Pressure 79/40 63/45 Blood Pressure [Right] O2 Sat by Pulse 98 Oximetry 02/21/21 02/21/21 02/21/21 01:51 01:53 01:58 Temperature Pulse Rate 90 76 88 Respiratory Rate Blood Pressure 80/48 101/56 Blood Pressure [Right] O2 Sat by Pulse 95 96 Oximetry 02/21/21 02/21/21 02/21/21 02:03 02:08 02:09 Temperature Pulse Rate 93 H 89 84 Respiratory Rate Blood Pressure 87/48 Blood Pressure [Right] O2 Sat by Pulse 97 97 Oximetry 02/21/21 02/21/21 02/21/21 02:13 02:18 02:23 Temperature Pulse Rate 83 81 78 Respiratory Rate Blood Pressure Blood Pressure [Right] O2 Sat by Pulse 95 93 94 Oximetry 02/21/21 02/21/21 02/21/21 02:28 02:33 02:38 Temperature Pulse Rate 71 115 H 67 Respiratory Rate Blood Pressure Blood Pressure [Right] O2 Sat by Pulse 94 94 94 Oximetry 02/21/21 02/21/21 02/21/21 02:41 02:43 02:45 Temperature Pulse Rate 63 63 80 Respiratory Rate Blood Pressure 82/44 86/51 Blood Pressure [Right] O2 Sat by Pulse 95 Oximetry 02/21/21 02/21/21 02/21/21 02:46 02:48 02:53 Temperature Pulse Rate 67 77 75 Respiratory Rate Blood Pressure 89/50 Blood Pressure [Right] O2 Sat by Pulse 97 100 Oximetry 02/21/21 02/21/21 02/21/21 02:55 02:57 02:58 Temperature Pulse Rate 67 68 72 Respiratory Rate Blood Pressure 106/52 83/40 Blood Pressure [Right] O2 Sat by Pulse 100 Oximetry 02/21/21 02/21/21 02/21/21 03:03 03:05 03:07 Temperature Pulse Rate 70 63 67 Respiratory Rate Blood Pressure 119/54 103/54 Blood Pressure [Right] O2 Sat by Pulse 100 Oximetry 02/21/21 02/21/21 02/21/21 03:08 03:13 03:16 Temperature Pulse Rate 64 67 70 Respiratory Rate Blood Pressure 117/57 112/56 Blood Pressure [Right] O2 Sat by Pulse 100 100 Oximetry 02/21/21 02/21/21 02/21/21 03:18 03:22 03:23 Temperature Pulse Rate 71 70 61 Respiratory Rate Blood Pressure Blood Pressure [Right] O2 Sat by Pulse 100 0 L 100 Oximetry 02/21/21 02/21/21 02/21/21 03:28 03:32 03:33 Temperature Pulse Rate 74 68 65 Respiratory Rate Blood Pressure 122/57 Blood Pressure [Right] O2 Sat by Pulse 100 100 Oximetry 02/21/21 02/21/21 02/21/21 03:38 03:42 03:43 Temperature 98.2 F Pulse Rate 72 75 77 Respiratory 18 Rate Blood Pressure Blood Pressure 122/57 [Right] O2 Sat by Pulse 100 0 L 100 Oximetry 02/21/21 02/21/21 02/21/21 03:48 03:53 03:58 Temperature Pulse Rate 73 83 78 Respiratory Rate Blood Pressure Blood Pressure [Right] O2 Sat by Pulse 100 100 100 Oximetry 02/21/21 02/21/21 02/21/21 04:02 04:03 04:08 Temperature Pulse Rate 78 82 72 Respiratory Rate Blood Pressure 124/58 112/58 Blood Pressure [Right] O2 Sat by Pulse 77 L 100 100 Oximetry 02/21/21 02/21/21 02/21/21 04:13 04:16 04:18 Temperature Pulse Rate 70 81 73 Respiratory Rate Blood Pressure 118/62 Blood Pressure [Right] O2 Sat by Pulse 100 100 Oximetry 02/21/21 02/21/21 02/21/21 04:23 04:28 04:32 Temperature Pulse Rate 78 72 77 Respiratory Rate Blood Pressure 124/59 Blood Pressure [Right] O2 Sat by Pulse 100 100 Oximetry 02/21/21 02/21/21 02/21/21 04:33 04:38 04:43 Temperature Pulse Rate 77 73 81 Respiratory Rate Blood Pressure Blood Pressure [Right] O2 Sat by Pulse 100 100 100 Oximetry 02/21/21 02/21/21 02/21/21 04:47 04:48 04:53 Temperature Pulse Rate 100 H 91 H 84 Respiratory Rate Blood Pressure 114/68 Blood Pressure [Right] O2 Sat by Pulse 99 98 Oximetry 02/21/21 02/21/21 02/21/21 04:58 05:01 05:03 Temperature Pulse Rate 89 77 86 Respiratory Rate Blood Pressure 116/57 Blood Pressure [Right] O2 Sat by Pulse 96 95 Oximetry 02/21/21 02/21/2121 05:08 05:13 05:16 Temperature Pulse Rate 78 90 88 Respiratory Rate Blood Pressure 115/58 Blood Pressure [Right] O2 Sat by Pulse 99 96 Oximetry 02/21/21 02/21/21 02/21/21 05:18 05:23 05:28 Temperature Pulse Rate 92 H 84 92 H Respiratory Rate Blood Pressure Blood Pressure [Right] O2 Sat by Pulse 95 98 95 Oximetry 02/21/21 02/21/21 02/21/21 05:31 05:33 05:38 Temperature Pulse Rate 82 89 89 Respiratory Rate Blood Pressure 106/57 Blood Pressure [Right] O2 Sat by Pulse 96 99 Oximetry 02/21/21 02/21/21 02/21/21 05:41 05:43 05:46 Temperature Pulse Rate 99 H 76 86 Respiratory Rate Blood Pressure 109/55 Blood Pressure [Right] O2 Sat by Pulse 74 L 98 Oximetry 02/21/21 02/21/21 02/21/21 05:48 05:51 05:53 Temperature Pulse Rate 88 79 80 Respiratory Rate Blood Pressure 105/54 Blood Pressure [Right] O2 Sat by Pulse 98 97 Oximetry 02/21/21 02/21/21 02/21/21 05:58 06:01 06:03 Temperature Pulse Rate 92 H 87 84 Respiratory Rate Blood Pressure 100/56 114/56 Blood Pressure [Right] O2 Sat by Pulse 100 100 Oximetry 02/21/21 02/21/21 02/21/21 06:08 06:13 06:16 Temperature Pulse Rate 80 83 92 H Respiratory Rate Blood Pressure 104/53 Blood Pressure [Right] O2 Sat by Pulse 99 99 Oximetry 02/21/21 02/21/21 02/21/21 06:18 06:23 06:28 Temperature Pulse Rate 99 H 84 90 Respiratory Rate Blood Pressure Blood Pressure [Right] O2 Sat by Pulse 99 98 98 Oximetry 02/21/21 02/21/21 02/21/21 06:31 06:33 06:38 Temperature Pulse Rate 78 89 84 Respiratory Rate Blood Pressure 103/52 Blood Pressure [Right] O2 Sat by Pulse 98 99 Oximetry 02/21/21 02/21/21 02/21/21 06:43 06:46 06:48 Temperature Pulse Rate 98 H 81 85 Respiratory Rate Blood Pressure 100/54 Blood Pressure [Right] O2 Sat by Pulse 98 97 Oximetry 02/21/21 02/21/21 02/21/21 06:53 06:58 07:01 Temperature Pulse Rate 78 84 86 Respiratory Rate Blood Pressure 105/60 Blood Pressure [Right] O2 Sat by Pulse 98 96 Oximetry 02/21/21 02/21/21 02/21/21 07:03 07:08 07:13 Temperature Pulse Rate 92 H 81 83 Respiratory Rate Blood Pressure Blood Pressure [Right] O2 Sat by Pulse 99 97 97 Oximetry 02/21/21 02/21/21 02/21/21 07:16 07:18 07:23 Temperature Pulse Rate 99 H 94 H 89 Respiratory Rate Blood Pressure 113/66 Blood Pressure [Right] O2 Sat by Pulse 100 98 Oximetry 02/21/21 02/21/21 02/21/21 07:28 07:32 07:33 Temperature Pulse Rate 85 78 79 Respiratory Rate Blood Pressure 124/59 Blood Pressure [Right] O2 Sat by Pulse 97 97 Oximetry - Exam Breasts: deferred Cardiovascular: Regular rate Lungs: Normal air movement FHR: category 1 Uterine Contraction Monitor Mode: External Cervical Dilatation: 7 (vertex) Cervical Effacement Percentage: 80 (Pitocin on hold) station: -3 Uterine Tone Measurement Phase: Resting Uterine Contraction Intensity: Moderate Extremities: edema - Labs Labs: Abnormal Labs 02/20/21 18:30 RDW 16.0 H Laboratory Results - last 24 hr 02/20/21 02/20/21 02/20/21 18:30 18:30 18:30 WBC 5.6 RBC 4.32 Hgb 12.8 Hct 37.4 MCV 87 MCH 30 MCHC 34 RDW 16.0 H Plt Count 198 Syphilis IgG Antibody Nonreactive Blood Type O POSITIVE Antibody Screen Negative
[2021-02-21] MEDS ORDERED: miSOPROStol 200 MCG TAB PR ONE (11:31)
[2021-02-21] MEDS ORDERED: METHYLERGONOVINE MALEATE 0.2 MG/ML VIAL IM ONE (11:31)
--- NOTE | 2021-02-21 11:31 | Procedure Note ---
OB Delivery Note - Delivery Date of Delivery: 02/21/21 Surgeon: THEO MOSCOSO Estimated blood loss: other (600 mL) - Vaginal Delivery presentation: vertex Delivery position: OA Intrapartum events: PROM->1hr before delivery, mult.variable deceleratio, uterine atony (s/p Methergine 0.2 mg IM, Misoprostol 800 mcg per rectum ) Delivery induction: oxytocin Delivery augmentation: pitocin Delivery monitor: external FHT, external uterine Route of delivery: Delivery placenta: spontaneous Delivery cord: nuchal cord (double, and body cord, loose, delivered through ) Episiotomy: none Delivery laceration: none Anesthesia: epidural - Infant A at 1 minute: 8 at 5 minutes: 9 Gender: Male (2490g (5lb 8oz) @ 11:08 am)
[2021-02-21] MEDS ORDERED: LANOLIN/ZINC/DIMETHICONE (LANSINOH) 7 GM TP PRN ×2 (15:01→16:00)
[2021-02-21] MEDS ORDERED: ONDANSETRON 4 MG/2 ML INJ IV PRN (16:00)
[2021-02-21] MEDS ORDERED: PROMETHAZINE 25 MG TAB PO PRN (16:00)
[2021-02-21] MEDS ORDERED: diphenhydrAMINE 25 MG CAP PO PRN (16:00)
[2021-02-21] MEDS ORDERED: WITCH HAZEL/ GLYCERIN PAD TP PRN (16:00)
[2021-02-21] MEDS ORDERED: BENZOCAINE/MENTHOL 20/0.5% TOP SPRAY 56 GM TP PRN (16:00)
[2021-02-21] MEDS ORDERED: MAGNESIUM HYDROXIDE (MOM) ORAL LIQD UDC PO PRN (16:00)
[2021-02-21] MEDS ORDERED: PROMETHAZINE 25 MG RECT SUPP PR PRN (16:00)
[2021-02-21] MEDS: IBUPROFEN 600 MG TAB PO SCH ×2 (16:17→22:07)
[2021-02-21] MEDS: HYDROcodone/ACETAMINOPHEN 5-325 MG TAB PO PRN (18:06)
[2021-02-21] MEDS: FERROUS SULFATE 325 MG TAB PO SCH (22:07)
[2021-02-22] MEDS: HYDROcodone/ACETAMINOPHEN 5-325 MG TAB PO PRN (00:21)
[2021-02-22 01:11] LABS: Hematocrit 33.8 % (30.3-42.9); Hemoglobin 11.1 gm/dl (10.1-14.3)
[2021-02-22] MEDS: IBUPROFEN 600 MG TAB PO SCH ×2 (05:34→11:07)
--- NOTE | 2021-02-22 08:21 | Discharge Summary ---
Providers - Providers Date of Admission: 02/20/21 14:37 Date of discharge: 02/22/21 (1500) Attending physician: ROEL MATHIS 02/21/21 15:01 Consult to [facility] [CONS] Routine Reason For Exam: assistance with , SNS Primary care physician: THEO MOSCOSO Hospitalization Reason for admission: induction of labor Delivery: Episiotomy: none Laceration: none Other procedures: none complications: none [place] baby: male Hospital course: 40-year-old -1-0-5 at 37 and 2 weeks who presents for induction of labor secondary to oligohydramnios and a history of intrauterine . The patient initiated her care in the first trimester of her . Her course is complicated by advanced maternal age, grand multiparity, history of intrauterine demise, morbid obesity, and currently oligohydramnios. The patient is GBS negative. Delivered viable male . Condition at discharge: Good Disposition: 01 HOME / SELF CARE / HOMELESS - Discharge Diagnoses (1) Morbid obesity Status: Acute (2) Term of male Status: Acute Plan - Discharge Medications Prescriptions: Ibuprofen [Motrin 600 MG tab] 600 mg PO Q8H 7 Days #21 tablet - Provider Discharge Summary Activity: routine, no sex for 6 weeks, no heavy lifting 4 weeks, no strenuous exercise Diet: other Instructions: routine Additional instructions: [] Smoking cessation referral if applicable(refer to patient education folder for contact #) [] Refer to [facility] Booklet Call your doctor immediately for: * Fever > 100.5 * Heavy vaginal bleeding ( >1 pad per hour) * Severe persistent headache * Shortness of breath * Reddened, hot, painful area to leg or breast - Follow up plan Follow up: THEO MOSCOSO MD [Primary Care Provider] - 6 Weeks
[2021-02-22] MEDS: FERROUS SULFATE 325 MG TAB PO SCH (11:07)
[2021-02-22] MEDS ORDERED: MEASLES, MUMPS & RUBELLA 12,500 UNIT/0.5 ML VACCINE SUB-Q ONE (11:33)
[2021-02-22] MEDS ORDERED: TETANUS,DIPH,PERTUSS(ACELL) VACCINE 0.5 ML SYRINGE IM ONE (11:33)
[2021-02-22 16:43] VITALS: BP 130/70
== END 2021-02-22 17:45 | disposition home or self-care (01) | DRG 774 ==
LOC: LD 14:37 → OB 02-21 12:57
PROVIDERS: ADMIT Obstetrics & Gynecology; ATTEND Obstetrics & Gynecology
PROC: 10E0XZZ Delivery of Products of Conception, External Approach (ICD-10-PCS; principal; 2021-02-21)
PROC: 3E0R3BZ Introduction of Anesthetic Agent into Spinal Canal, Percutaneous Approach (ICD-10-PCS; 2021-02-21)
PROC: 00HU33Z Insertion of Infusion Device into Spinal Canal, Percutaneous Approach (ICD-10-PCS; 2021-02-21)
PROC: 3E0234Z Introduction of Serum, Toxoid and Vaccine into Muscle, Percutaneous Approach (ICD-10-PCS; 2021-02-22)
DX: O41.03X0 Oligohydramnios, third trimester, not applicable or unspecified (principal); O24.92 Unspecified diabetes mellitus in childbirth; Z3A.37 37 weeks gestation of pregnancy; Z37.0 Single live birth; O99.214 Obesity complicating childbirth; E66.01 Morbid (severe) obesity due to excess calories; O99.62 Diseases of the digestive system complicating childbirth; O76 Abnormality in fetal heart rate and rhythm complicating labor and delivery; O62.2 Other uterine inertia; O69.81X0 Labor and delivery complicated by cord around neck, without compression, not applicable or unspecified; Z20.822 Contact with and (suspected) exposure to COVID-19; Z90.49 Acquired absence of other specified parts of digestive tract; K21.9 Gastro-esophageal reflux disease without esophagitis; Z23 Encounter for immunization
CPT/HCPCS: 36415; 85014; 85018; 85027; 86592; 86850; 86900; 86901; 99211; G0378; G0463; J2210; J2590; J3105; J7120; U0003